=== PATIENT | male | born 1975 | race African-American/Black ===

== ENCOUNTER 2022-04-22 08:00 | Outpatient (CLI) | payer OTHER ==
[2022-04-22 23:30] LABS: CHLAMYDIA TRACHOMATIS DNA NEGATIVE (NEGATIVE); NEISSERIA GONORRHOEAE DNA NEGATIVE (NEGATIVE)
== END 2022-04-22 23:59 | disposition home or self-care (01) ==
LOC: LAB 08:00
PROVIDERS: ATTEND Nurse Practitioner
DX: R30.0 Dysuria (principal)
CPT/HCPCS: 87491; 87591; 87661

== ENCOUNTER 2023-02-25 09:24 | Outpatient (CLI) | payer OTHER ==
--- NOTE | 2023-02-25 16:01 | XRAY Report ---
PROCEDURE: Lumbar Spine 4V INDICATIONS: UNSPECIFIED LOW BACK PAIN TECHNIQUE: 3 views of the lumbar spine were acquired. COMPARISON: None. FINDINGS: Bones: 5 [id number] vertebrae are present. There is slight wedge deformity at L5. There is tra ce retrolisthesis of L5 on S1. Disc and foraminal narrowing are most prominent at L5-S1. No suspiciou s bony lesions. Soft tissues: Overlying bowel gas pattern is normal. No suspicious soft tissue calcifications. IMPRESSION: Wedge deformity at L5 of indeterminate age. No priors. Disc and foraminal narrowing are most prominent at L5-S1. Reviewed by: Loren Long MD on 02/25/2023 3:59 PM PST Approved by: Loren Long MD on 02/25/2023 3:59 PM PST Station ID: [id number]
== END 2023-02-25 09:25 | disposition home or self-care (01) ==
LOC: DI.N 09:24
PROVIDERS: ATTEND Physician Assistant Medical
DX: M51.86 Other intervertebral disc disorders, lumbar region (principal); M48.07 Spinal stenosis, lumbosacral region

== ENCOUNTER 2023-03-05 08:54 | Outpatient (CLI) | payer OTHER ==
--- NOTE | 2023-03-05 11:08 | CT Report ---
PROCEDURE: Lumbar Spine WO INDICATIONS: LUMBAR RADICULOPATHY TECHNIQUE: Noncontrast 3 mm thick sections acquired from the T12 level to the sacrum. Sagittal and coronal refo rmats were constructed. For radiation dose reduction, the following was used: automated exposure co ntrol, adjustment of mA and/or kV according to patient size. COMPARISON: X-ray 02/25/2023. FINDINGS: Image quality: Excellent. Bones: Straightening of normal lumbar lordosis. Minimal retrolisthesis of L5 on S1. Mild facet arthro oz of the lower lumbar spine. Mild degenerative endplate changes. Moderate bilateral neuroforamina l stenosis at L5-S1. No acute vertebral body compression fractures. No suspicious lytic or blastic b suly lesions. Moderate central canal stenosis at L3-L4 and L4-5. No pars defects. Degenerative change s of sacroiliac joints. Soft tissues: No retroperitoneal masses or hematomas. Visualized aorta is normal in caliber. Mild c entral vascular calcifications. IMPRESSION: 1.Degenerative changes of the lumbar spine as described above. 2.Moderate bilateral neuroforaminal stenosis at L5-S1. Moderate central canal stenosis at L3-L4 and L 4-L5. Reviewed by: Dwayne Wynne MD on 03/05/2023 11:07 AM PST Approved by: Dwayne Wynne MD on 03/05/2023 11:07 AM PST Station ID: [id number]
== END 2023-03-05 08:55 | disposition home or self-care (01) ==
LOC: DI 08:54
PROVIDERS: ATTEND Family Medicine
DX: M47.26 Other spondylosis with radiculopathy, lumbar region (principal); M48.061 Spinal stenosis, lumbar region without neurogenic claudication; M48.07 Spinal stenosis, lumbosacral region